=== PATIENT | female | born 1990 | race Caucasian/White ===

== ENCOUNTER 2019-04-29 12:10 | Inpatient (IN) | payer OTHER ==
[2019-04-29 14:12] VITALS: BMI 42.0
--- NOTE | 2019-04-29 16:21 | HP ---
CIWA Score Nausea/Vomitin-Mild Nausea/No Vomiting Muscle Tremors: 3 Anxiety: 3 Agitation: 3 Paroxysmal Sweats: 1-Minimal Palms Moist Orientation: 0-Oriented Tacttile Disturbances: 0-None Auditory Disturbances: 0-None Visual Disturbances: 0-None Headache: 1-Very Mild CIWA-Ar Total Score: 12 - Admission Criteria OASAS Guidelines: Admission for Medically Managed Detox: Requires at least one of the followin. CIWA greater than 12 2. Seizures within the past 24 hours 3. Delirium tremens within the past 24 hours 4. Hallucinations within the past 24 hours 5. Acute intervention needed for co occurring medical disorder 6. Acute intervention needed for co occurring psychiatric disorder 7. Severe withdrawal that cannot be handled at a lower level of care (continued vomiting, continued diarrhea, abnormal vital signs) requiring intravenous medication and/or fluids 8. Patient presents the following: CIWA greater than 12 Admission Criteria Met: Admission criteria met Admission ROS [facility] Chief Complaint: here for alcohol detox 28 yo with bipolar d/o, anxiety moved here from [place] to move closer to family. 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 On no meds. alcohol- 1 bottle of wine/night for the last 3 years, no h/o seizures/DT's, does not use any other drugs DUR- no recent meds Utox- BZO (took valium for flight), denies Opiate use Allergies/Adverse Reactions: Allergies Allergy/AdvReac Type Severity Reaction Status Date / Time clarithromycin [From Biaxin] Allergy Verified 04/29/19 14:13 - Ebola screening Have you traveled outside of the country in the last 21 days: No Have you had contact with anyone from an Ebola affected area: No Do you have a fever: No Patient History - Patient Medical History Hx Bipolar Disorder: Yes (anxiety) - Patient Surgical History Past Surgical History: No - PPD History Previous Implant?: No - Reproductive History Patient is a Female of Child Bearing Age (11 -55 yrs old): Yes Patient : No - Smoking Cessation Smoking history: Never smoked - Substance & Tx. History Hx Alcohol Use: Yes Hx Substance Use: No Hx Substance Use Treatment: No - Substances abused Alcohol Substance route: Oral Frequency: Daily Amount used: 1 1/2 LITER OF WINE Age of first use: 18 Date of last use: 04/28/19 Family Disease History - Family Disease History Family Disease History: Other: Father (dad) Admission Physical Exam [facility] - Vital Signs Vital Signs: Vital Signs - 24 hr 04/29/19 04/29/19 13:54 15:29 Temperature 99.8 F H 99.8 F H Pulse Rate 111 H 111 H Respiratory 20 20 Rate Blood Pressure 151/96 151/96 - Physical General Appearance: Yes: Within Normal Limits, Obese HEENTM: Yes: Within Normal Limits, Hearing grossly Normal Respiratory: Yes: Within Normal Limits, Lungs Clear Neck: Yes: Within Normal Limits, No masses,lesions,Nodules Cardiology: Yes: Within Normal Limits Abdominal: Yes: Within Normal Limits Genitourinary: Yes: Within Normal Limits Back: Yes: Within Normal Limits Musculoskeletal: Yes: Within Normal Limits Extremities: Yes: Within Normal Limits Neurological: Yes: Within Normal Limits, scheduling manager II-XII NML intact Integumentary: Yes: Within Normal Limits Lymphatic: Yes: Within Normal Limits - Diagnostic (1) Alcohol use disorder Current Visit: Yes Status: Acute (2) Bipolar 1 disorder Current Visit: Yes Status: Acute Breathalyzer - Breathalyzer Breathalyzer: 0 Urine Drug Screen - Test Device Lot number: [id number] Expiration date: 01/03/21 - Control Is test valid?: Yes - Results Drug screen NEGATIVE: No Urine drug screen results: MOP-Opiates, BZO-Benzodiazepines Inpatient Rehab Admission - Rehab Decision to Admit Inpatient rehab admission?: No
[2019-04-29] MEDS ORDERED: chlordiazePOXIDE HCL 25 MG CAPSULE PO PRN (16:28)
[2019-04-29] MEDS ORDERED: MAGNESIUM CITRATE 300 ML BOTTLE PO PRN (16:30)
[2019-04-29] MEDS ORDERED: BISMUTH SUBSALICYLATE 524 MG/30 ML UD PO PRN (16:30)
[2019-04-29] MEDS ORDERED: METHOCARBAMOL 500 MG TABLET PO PRN (16:30)
[2019-04-29] MEDS ORDERED: hydrOXYzine PAMOATE 25 MG CAPSULE (FP) PO PRN (16:30)
[2019-04-29] MEDS ORDERED: ONDANSETRON *ODT* 4 MG TABLET SL PRN (16:30)
[2019-04-29] MEDS ORDERED: ACETAMINOPHEN 325 MG TABLET (FP) PO PRN ×2 (16:30)
[2019-04-29] MEDS ORDERED: MAGNESIUM HYDROX 2400MG/30ML ORAL SUSPENSION 30 ML CUP PO PRN (16:30)
[2019-04-29] MEDS ORDERED: IBUPROFEN 400 MG TABLET (FP) PO PRN (16:30)
[2019-04-29] MEDS ORDERED: MAG HYDROX/AL HYDROX/SIMETH 30 ML UNIT-DOSE CUP PO PRN (16:30)
[2019-04-29] MEDS ORDERED: MENTHOL/PHENOL 1 EACH UD MM PRN (16:30)
[2019-04-29] MEDS ORDERED: chlordiazePOXIDE HCL 25 MG CAPSULE PO ONE (17:30)
[2019-04-29] MEDS: THIAMINE HCL 100 MG TABLET (FP) PO SCH (22:18)
[2019-04-29] MEDS: chlordiazePOXIDE HCL 25 MG CAPSULE PO SCH (22:18)
[2019-04-29] MEDS: MELATONIN 5 MG TABLETS PO PRN (22:19)
[2019-04-29] MEDS ORDERED: cloNIDine HCL 0.1 MG TABLET PO ONE (22:43)
[2019-04-29] MEDS: OXYMETAZOLINE 0.05% NASAL SOLUTION 15 ML BOTTLE NS PRN (22:52)
[2019-04-30] MEDS: chlordiazePOXIDE HCL 25 MG CAPSULE PO SCH ×3 (05:28→16:54)
[2019-04-30 10:04] LABS: ALBUMIN 3.7 g/dl (3.4-5.0); BILIRUBIN,TOTAL 0.9 mg/dL (0.2-1); CALCIUM 9.1 mg/dL (8.5-10.1); CREATININE 0.7 mg/dL (0.55-1.3); HEMATOCRIT 39.3 % (32.4-45.2); HEMOGLOBIN 13.5 GM/dL (10.7-15.3); MCH 31.4 pg (25.7-33.7); MCHC 34.3 g/dl (32.0-36.0); MEAN CELL VOLUME 91.5 fl (80-96); MEAN PLT VOLUME 7.7 fl (7.5-11.1); POTASSIUM 4.2 mmol/L (3.5-5.1); RDW 13.5 % (11.6-15.6); WHITE BLOOD COUNT 6.3 K/mm3 (4.0-10.0)
[2019-04-30] MEDS: PRENATAL VITAMINS W/ FOLIC ACID TABLET (FP) PO SCH (10:15)
[2019-04-30] MEDS: OXYMETAZOLINE 0.05% NASAL SOLUTION 15 ML BOTTLE NS PRN ×2 (10:17→22:13)
[2019-04-30 10:34] LABS: PLATELET COUNT 206 K/MM3 (134-434)
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
[2019-04-30] MEDS: GABAPENTIN 300 MG CAPSULE (FP) PO SCH ×2 (13:40→22:12)
--- NOTE | 2019-04-30 15:58 | PN ---
[facility] CIWA - CIWA Score Nausea/Vomitin-No Nausea/No Vomiting Muscle Tremors: 3 Anxiety: 4-Mod. Anxious/Guarded Agitation: 1-Slight > Activity Paroxysmal Sweats: 1-Minimal Palms Moist Orientation: 0-Oriented Tacttile Disturbances: 2-Mild Itch/Numbness/Burn Auditory Disturbances: 0-None Visual Disturbances: 2-Mild Sensitivity Headache: 0-None Present CIWA-Ar Total Score: 13 S Progress Note (SOAP) Subjective: Anxious, Tremors, Sweating, Interrupted Sleep. Objective: PATIENT A & O X 3, OBSERVED AMBULATING ON UNIT UNASSISTED. IN NO ACUTE DISTRESS. 04/30/19 15:57 Vital Signs Temperature 97.4 F L 04/30/19 13:35 Pulse Rate 101 H 04/30/19 13:35 Respiratory Rate 18 04/30/19 13:35 Blood Pressure 130/86 04/30/19 13:35 O2 Sat by Pulse Oximetry (%) Laboratory Tests 04/30/19 04/30/19 04/30/19 07:00 07:00 07:00 WBC 6.3 RBC 4.30 Hgb 13.5 Hct 39.3 MCV 91.5 MCH 31.4 MCHC 34.3 RDW 13.5 Plt Count 206 MPV 7.7 Sodium 137 Potassium 4.2 Chloride 103 Carbon Dioxide 28 Anion Gap 6 L BUN 8.0 Creatinine 0.7 Est GFR (CKD-EPI)AfAm 136.66 Est GFR (CKD-EPI)NonAf 117.91 Random Glucose 110 H Calcium 9.1 Total Bilirubin 0.9 AST 80 H ALT 86 H Alkaline Phosphatase 78 Total Protein 7.0 Albumin 3.7 RPR Titer Nonreactive LABS NOTED. Assessment: 04/30/19 15:57 WITHDRAWAL SYMPTOMS. ELEVATED LIVER ENZYMES (AST, ALT). Plan: CONTINUE DETOX.
[2019-04-30] MEDS: chlordiazePOXIDE 5 MG CAPSULE PO SCH (22:12)
[2019-04-30] MEDS: THIAMINE HCL 100 MG TABLET (FP) PO SCH (22:12)
[2019-04-30] MEDS: MELATONIN 5 MG TABLETS PO PRN (22:13)
[2019-05-01] MEDS: chlordiazePOXIDE 5 MG CAPSULE PO SCH ×3 (05:40→17:12)
[2019-05-01] MEDS: GABAPENTIN 300 MG CAPSULE (FP) PO SCH ×3 (05:40→22:21)
[2019-05-01] MEDS: PRENATAL VITAMINS W/ FOLIC ACID TABLET (FP) PO SCH (10:24)
[2019-05-01] MEDS: hydrOXYzine PAMOATE 50 MG CAPSULE (FP) PO PRN ×2 (10:26→17:14)
[2019-05-01] MEDS: OXYMETAZOLINE 0.05% NASAL SOLUTION 15 ML BOTTLE NS PRN ×2 (10:26→22:24)
--- NOTE | 2019-05-01 14:15 | PN ---
[facility] CIWA - CIWA Score Nausea/Vomitin-Mild Nausea/No Vomiting Muscle Tremors: 2 Anxiety: 1-Mildly Anxious Agitation: 1-Slight > Activity Paroxysmal Sweats: No Perspiration Orientation: 0-Oriented Tacttile Disturbances: 0-None Auditory Disturbances: 0-None Headache: 1-Very Mild [facility] Progress Note (SOAP) Subjective: pt states she would like to go to [facility] for rehab O: Vital Signs - 24 hr 04/30/19 04/30/19 05/01/19 18:00 21:43 00:30 Temperature 97.6 F 99 F Pulse Rate 107 H 119 H Respiratory 20 20 16 Rate Blood Pressure 112/73 135/93 05/01/19 05/01/19 05/01/19 03:30 06:15 06:30 Temperature 97.5 F L Pulse Rate 110 H Respiratory 18 20 16 Rate Blood Pressure 130/85 05/01/19 05/01/19 09:13 13:16 Temperature 98 F 97.7 F Pulse Rate 107 H 103 H Respiratory 20 16 Rate Blood Pressure 124/85 114/83 Laboratory Tests 04/30/19 04/30/19 04/30/19 07:00 07:00 07:00 WBC 6.3 RBC 4.30 Hgb 13.5 Hct 39.3 MCV 91.5 MCH 31.4 MCHC 34.3 RDW 13.5 Plt Count 206 MPV 7.7 Sodium 137 Potassium 4.2 Chloride 103 Carbon Dioxide 28 Anion Gap 6 L BUN 8.0 Creatinine 0.7 Est GFR (CKD-EPI)AfAm 136.66 Est GFR (CKD-EPI)NonAf 117.91 Random Glucose 110 H Calcium 9.1 Total Bilirubin 0.9 AST 80 H ALT 86 H Alkaline Phosphatase 78 Total Protein 7.0 Albumin 3.7 RPR Titer Nonreactive mildly increased liver nezymes increased NE a/p: AUD- continue detox protocol, prn meds pt to discuss with counselor re outpt f/u or inpt rehab
[2019-05-01] MEDS: chlordiazePOXIDE HCL 10 MG CAPSULE PO SCH (22:21)
[2019-05-01] MEDS: MELATONIN 5 MG TABLETS PO PRN (22:21)
[2019-05-01] MEDS: THIAMINE HCL 100 MG TABLET (FP) PO SCH (22:21)
[2019-05-01] MEDS ORDERED: chlordiazePOXIDE HCL 10 MG CAPSULE PO PRN (23:00)
[2019-05-02] MEDS: GABAPENTIN 300 MG CAPSULE (FP) PO SCH ×2 (05:15→15:04)
[2019-05-02] MEDS: chlordiazePOXIDE HCL 10 MG CAPSULE PO SCH ×3 (05:16→17:02)
[2019-05-02] MEDS: PRENATAL VITAMINS W/ FOLIC ACID TABLET (FP) PO SCH (10:17)
[2019-05-02] MEDS: OXYMETAZOLINE 0.05% NASAL SOLUTION 15 ML BOTTLE NS PRN ×2 (10:18→22:32)
[2019-05-02] MEDS: hydrOXYzine PAMOATE 50 MG CAPSULE (FP) PO PRN (12:31)
--- NOTE | 2019-05-02 13:58 | PN ---
S CIWA - CIWA Score Nausea/Vomitin-No Nausea/No Vomiting Muscle Tremors: None Anxiety: 4-Mod. Anxious/Guarded Agitation: 1-Slight > Activity Paroxysmal Sweats: 3 Orientation: 0-Oriented Tacttile Disturbances: 1-Very Mild Itch/Numbness Auditory Disturbances: 0-None Visual Disturbances: 0-None Headache: 0-None Present CIWA-Ar Total Score: 9 [facility] Progress Note (SOAP) Subjective: Sweating, Anxious. Objective: PATIENT A & O X 3, OBSERVED AMBULATING ON UNIT UNASSISTED. IN NO ACUTE DISTRESS. 05/02/19 13:57 Vital Signs Temperature 97.5 F L 05/02/19 13:12 Pulse Rate 96 H 05/02/19 13:12 Respiratory Rate 18 05/02/19 13:12 Blood Pressure 140/92 05/02/19 13:12 O2 Sat by Pulse Oximetry (%) Laboratory Tests 04/30/19 04/30/19 04/30/19 07:00 07:00 07:00 WBC 6.3 RBC 4.30 Hgb 13.5 Hct 39.3 MCV 91.5 MCH 31.4 MCHC 34.3 RDW 13.5 Plt Count 206 MPV 7.7 Sodium 137 Potassium 4.2 Chloride 103 Carbon Dioxide 28 Anion Gap 6 L BUN 8.0 Creatinine 0.7 Est GFR (CKD-EPI)AfAm 136.66 Est GFR (CKD-EPI)NonAf 117.91 Random Glucose 110 H Calcium 9.1 Total Bilirubin 0.9 AST 80 H ALT 86 H Alkaline Phosphatase 78 Total Protein 7.0 Albumin 3.7 RPR Titer Nonreactive LABS NOTED. Assessment: 05/02/19 13:58 WITHDRAWAL SYMPTOMS. ELEVATED AST LEVEL. ELEVATED ALT LEVEL. Plan: CONTINUE DETOX. PATIENT SCHEDULED FOR D/C TOMORROW.
--- NOTE | 2019-05-02 14:05 | PN ---
Psychiatric Progress Note Vital Signs: Vital Signs Period Temp Pulse Resp BP Sys/Vick Pulse Ox Last 24 Hr 96.8 F-98.4 F 96-125 18-20 119-140/77-92 Date of Session: 05/02/19 Chief Complaint:: "I am having night terrors and i did not sleep last night." HPI: Patient admitted to for alcohol dependence. She reports night terrors and insomnia from last night. ROS: Patient is coherent, alert and oriented X3. Current Medications: Active Medications Generic Name Dose Route Start Last Admin Trade Name Freq PRN Reason Stop Dose Admin Acetaminophen 650 mg 04/29/19 16:30 Tylenol - PO Q6H PRN PAIN LEVEL 4 - 6 Acetaminophen 650 mg 04/29/19 16:30 Tylenol - PO Q6H PRN FEVER Al Hydroxide/Mg Hydroxide 30 ml 04/29/19 16:30 Mylanta Oral Suspension - PO Q6H PRN DYSPEPSIA Bacitracin 1 applic 05/02/19 14:00 Bacitracin - TP BID JD Bismuth Subsalicylate 524 mg 04/29/19 16:30 Pepto-Bismol - PO Q1H PRN DIARRHEA Chlordiazepoxide HCl 10 mg 05/01/19 23:00 05/02/19 10:17 Librium - PO 05/02/19 17:01 10 mg [id number] JD Administration Chlordiazepoxide HCl 10 mg 05/02/19 23:00 Librium - PO 05/03/19 23:01 Q12H JD Chlordiazepoxide HCl 10 mg 05/01/19 23:00 Librium - PO 05/02/19 23:00 Q4H PRN WITHDRAWAL(CONT SUBST) Eucalyptus/Menthol/Phenol/Sorbitol 1 each 04/29/19 16:30 Cepastat Lozenge - MM 05/05/19 16:30 Q4H PRN SORE THROAT Gabapentin 300 mg 04/30/19 14:00 05/02/19 05:15 Neurontin - PO 300 mg TID JD Administration Hydroxyzine Pamoate 50 mg 04/30/19 13:17 05/02/19 12:31 Vistaril - PO 05/05/19 16:30 50 mg Q4H PRN Administration For Anxiety Ibuprofen 400 mg 04/29/19 16:30 Motrin - PO Q6H PRN PAIN LEVEL 1 - 3 Magnesium Citrate 300 ml 04/29/19 16:30 Citroma - PO Q48H PRN CONSTIPATION Magnesium Hydroxide 30 ml 04/29/19 16:30 05/01/19 22:33 Milk Of Magnesia - PO 30 ml PRN PRN Administration CONSTIPATION Melatonin 5 mg 04/29/19 16:30 05/01/19 22:21 Melatonin PO 5 mg HS PRN Administration INSOMNIA Methocarbamol 500 mg 04/29/19 16:30 Robaxin - PO 05/05/19 16:30 Q6H PRN MUSCLE SPASMS Ondansetron HCl 4 mg 04/29/19 16:30 04/30/19 10:16 Zofran Odt - SL 05/05/19 16:31 4 mg Q12H PRN Administration Nausea/Vomiting Oxymetazoline HCl 1 spray 04/29/19 20:54 05/02/19 10:18 Afrin - NS 1 spray BID PRN Administration NASAL CONGESTION Multivit/Folic Acid/Iron 1 tab 04/30/19 10:00 05/02/19 10:17 Vitamins (Sjr) - PO 1 tab DAILY JD Administration Thiamine HCl 100 mg 04/29/19 22:00 05/01/19 22:21 Vitamin B1 - PO 100 mg HS JD Administration Medication(s) Change(s): Yes. Provider note:: Patient reports insomnia, nightmares, and worsening anxiety which occured last night. Stated last night was the first night she had difficulty sleeping. Patient agreeable to an increase in Melatonin and gabapentin tonight. Will d/c melatonin 5mg and order 10mg. Will increase 10pm gabapentin dose from 300mg to 500mg. Benefits and side effects discussed. Verbal consent given. Total face to face time:: 25 Mental Status Exam - Mental Status Exam Alert and Oriented to: Time, Place, Person Cognitive Function: Good Patient Appearance: Well Groomed Mood: Anxious Affect: Appropriate Patient Behavior: Appropriate, Cooperative Speech Pattern: Appropriate Voice Loudness: Normal Thought Process: Goal Oriented Thought Disorder: Not Present Hallucinations: Denies Suicidal Ideation: Denies Homicidal Ideation: Denies Insight/Judgement: Poor Sleep: Poorly Appetite: Fair Muscle strength/Tone: Normal Gait/Station: Normal Psychiatric Treatment Plan - Problem List (1) Mood disorder Current Visit: Yes (2) Alcohol use disorder Current Visit: Yes (3) Alcohol-induced anxiety disorder Current Visit: Yes
[2019-05-02] MEDS: BACITRACIN 15 GM TUBE TOPICAL OINTMENT TP SCH ×2 (15:04→22:28)
[2019-05-02] MEDS ORDERED: GABAPENTIN 300 MG CAPSULE (FP) PO SCH (22:00)
[2019-05-02] MEDS ORDERED: MELATONIN 5 MG TABLETS PO PRN (22:00)
[2019-05-02] MEDS: THIAMINE HCL 100 MG TABLET (FP) PO SCH (22:29)
[2019-05-02] MEDS ORDERED: chlordiazePOXIDE HCL 10 MG CAPSULE PO SCH (23:00)
[2019-05-03] MEDS ORDERED: GABAPENTIN 300 MG CAPSULE (FP) PO SCH (06:00)
[2019-05-03 06:59] VITALS: BP 127/87; PULSE 98; TEMP 98
[2019-05-03] MEDS: hydrOXYzine PAMOATE 50 MG CAPSULE (FP) PO PRN (07:50)
--- NOTE | 2019-05-03 08:29 | PN ---
[facility] CIWA - CIWA Score Nausea/Vomitin-No Nausea/No Vomiting Muscle Tremors: 1-None Visible, but [place] Anxiety: 1-Mildly Anxious Agitation: 0-Normal Activity Paroxysmal Sweats: No Perspiration Orientation: 0-Oriented Tacttile Disturbances: 0-None Auditory Disturbances: 0-None Visual Disturbances: 0-None Headache: 1-Very Mild CIWA-Ar Total Score: 3 [facility] Progress Note (SOAP) Subjective: alert,no complaint Objective: 05/03/19 08:28 Vital Signs Temperature 98.0 F 05/03/19 06:58 Pulse Rate 98 H 05/03/19 06:58 Respiratory Rate 18 05/03/19 06:58 Blood Pressure 127/87 05/03/19 06:58 O2 Sat by Pulse Oximetry (%) Assessment: 05/03/19 08:28 detox completed,no withdrawal symptom Plan: discharge today,follow up with [facility] arrangement
--- NOTE | 2019-05-03 08:32 | DS ---
[facility] Detox Discharge Summary Admission Date: 04/29/19 Discharge Date: 05/03/19 - History Present History: Alcohol Dependence Additional Comments: follow up with [facility] as arrangement Pertinent Past History: bipolar disorder - Physical Exam Results Vital Signs: Vital Signs Temperature 98.0 F 05/03/19 06:58 Pulse Rate 98 H 05/03/19 06:58 Respiratory Rate 18 05/03/19 06:58 Blood Pressure 127/87 05/03/19 06:58 O2 Sat by Pulse Oximetry (%) Pertinent Admission Physical Exam Findings: withdrawal signs and symptom Vital Signs Temperature 98.0 F 05/03/19 06:58 Pulse Rate 98 H 05/03/19 06:58 Respiratory Rate 18 05/03/19 06:58 Blood Pressure 127/87 05/03/19 06:58 O2 Sat by Pulse Oximetry (%) Laboratory Last Values WBC 6.3 K/mm3 (4.0-10.0) 04/30/19 07:00 RBC 4.30 M/mm3 (3.60-5.2) 04/30/19 07:00 Hgb 13.5 GM/dL (10.7-15.3) 04/30/19 07:00 Hct 39.3 % (32.4-45.2) 04/30/19 07:00 MCV 91.5 fl (80-96) 04/30/19 07:00 MCH 31.4 pg (25.7-33.7) 04/30/19 07:00 MCHC 34.3 g/dl (32.0-36.0) 04/30/19 07:00 RDW 13.5 % (11.6-15.6) 04/30/19 07:00 Plt Count 206 K/MM3 (134-434) 04/30/19 07:00 MPV 7.7 fl (7.5-11.1) 04/30/19 07:00 Sodium 137 mmol/L (136-145) 04/30/19 07:00 Potassium 4.2 mmol/L (3.5-5.1) 04/30/19 07:00 Chloride 103 mmol/L (98-107) 04/30/19 07:00 Carbon Dioxide 28 mmol/L (21-32) 04/30/19 07:00 Anion Gap 6 MMOL/L (8-16) L 04/30/19 07:00 BUN 8.0 mg/dL (7-18) 04/30/19 07:00 Creatinine 0.7 mg/dL (0.55-1.3) 04/30/19 07:00 Est GFR (CKD-EPI)AfAm 136.66 04/30/19 07:00 Est GFR (CKD-EPI)NonAf 117.91 04/30/19 07:00 Random Glucose 110 mg/dL (74-106) H 04/30/19 07:00 Calcium 9.1 mg/dL (8.5-10.1) 04/30/19 07:00 Total Bilirubin 0.9 mg/dL (0.2-1) 04/30/19 07:00 AST 80 U/L (15-37) H 04/30/19 07:00 ALT 86 U/L (13-61) H 04/30/19 07:00 Alkaline Phosphatase 78 U/L (45-117) 04/30/19 07:00 Total Protein 7.0 g/dl (6.4-8.2) 04/30/19 07:00 Albumin 3.7 g/dl (3.4-5.0) 04/30/19 07:00 RPR Titer Nonreactive (NONREACTIVE) 04/30/19 07:00 - Treatment Hospital Course: Detox Protocol Followed, Detoxed Safely, Responded well, Discharged Condition Good, Rehab Referral Accepted Patient has Accepted a Rehab Referral to: [facility] - Medication Discharge Medications: Ambulatory Orders Fluoxetine HCl [Prozac -] 20 mg PO DAILY 04/29/19 - AMA Did Patient Leave Against Medical Advice: No
== END 2019-05-03 08:46 | disposition home or self-care (01) | DRG 775 ==
LOC: YASAS 12:10 → Y3N 17:13
PROVIDERS: ADMIT Surgery; ATTEND Surgery
PROC: HZ2ZZZZ Detoxification Services for Substance Abuse Treatment (ICD-10-PCS; principal; 2019-04-29)
DX: F10.230 Alcohol dependence with withdrawal, uncomplicated (principal); F10.280 Alcohol dependence with alcohol-induced anxiety disorder; F39 Unspecified mood [affective] disorder; F31.9 Bipolar disorder, unspecified; R94.5 Abnormal results of liver function studies
CPT/HCPCS: 36415; 80053; 85027; 86593; J0735; Q0162